=== PATIENT | male | born 1945 | race Caucasian/White ===

== ENCOUNTER 2020-06-13 07:26 | Outpatient (CLI) | payer OTHER ==
[2020-06-13 10:17] LABS: PTT 28.1 sec (22.9-36.1); Prothrombin Time 13.1 sec (12.0-14.7)
[2020-06-13 10:45] LABS: Mean Platelet Volume 6.7 fL (7.4-10.4); Platelet Count 166 thou/uL (130-400); White Blood Cell (WBC) Count 4.8 thou/uL (4.8-10.8)
[2020-06-13 11:03] LABS: Red Blood Cell (RBC) Count 3.85 mill/uL (4.70-6.10)
[2020-06-13 11:04] LABS: Mean Corpuscular HGB CONC 34.6 g/dL (32.0-36.0); Mean Corpuscular Hemoglobin 33.8 pg (27.0-31.0); Mean Corpuscular Volume 97.7 fL (78.0-98.0); RBC Distribution Width 13.1 % (11.5-14.5)
[2020-06-13 12:57] LABS: Anion Gap 18 mmol/L (10-20); BUN (Urea Nitrogen) 20 mg/dL (8.4-25.7); Calc. Creatinine Clearance 0 mL/min (70-130); Calcium 9.8 mg/dL (7.8-10.44); Carbon Dioxide 24 mmol/L (23-31); Chloride 96 mmol/L (98-107); Estimated GFR-MDRD 57; Glucose 103 mg/dL (83-110); Potassium 3.9 mmol/L (3.5-5.1); Sodium 134 mmol/L (136-145)
[2020-06-14 14:02] LABS: SARS-CoV-2 MS2 Positive; SARS-CoV-2 N Gene Negative; SARS-CoV-2 S Gene Negative; SARS-CoV-2 by NAA Not Detected (NotDetected); SARS-CoV-2 orf1ab Negative
== END 2020-06-13 07:27 | disposition home or self-care (01) ==
LOC: LABBT 07:26
PROVIDERS: ATTEND Neurological Surgery
DX: Z01.812 Encounter for preprocedural laboratory examination (principal); Z20.828 Contact with and (suspected) exposure to other viral communicable diseases; M48.02 Spinal stenosis, cervical region; M47.12 Other spondylosis with myelopathy, cervical region
CPT/HCPCS: 80048; 85027; 85610; 85730; 87635; U0003

== ENCOUNTER 2020-08-27 10:00 | Outpatient (CLI) | payer OTHER ==
--- NOTE | 2020-08-27 10:22 | RAD ---
EXAM: Cervical spine 2 views: HISTORY: Cervical stenosis, follow-up postsurgery COMPARISON: 06/11/2020 FINDINGS: Anterior cervical fusion changes at C4, C5, and C6. No evidence for acute fracture or dislocation or significant acute process. No evidence for significant malalignment. No prevertebral soft tissue swelling No evidence for a focal bone lesion. IMPRESSION: Unremarkable postoperative change.
--- NOTE | 2020-08-27 12:19 | RAD ---
LUMBAR SPINE SERIES 3 VIEWS WITH FLEXION AND EXTENSION: Date: 08/27/2020 HISTORY: Back pain, spinal stenosis. FINDINGS: Severe arthritic changes of the spine are noted. Pronounced disc narrowing at all vertebral body leve ls. There is no spondylolisthesis. There are prominent degenerative facet changes. There is limited m otion on either these flexion or extension views without abnormal motion demonstrated. IMPRESSION: 1. Severe osteoarthritic changes of the spine. 2. Atherosclerosis. POS: [facility]
== END 2020-08-27 10:01 | disposition home or self-care (01) ==
LOC: TBSIIMAG 10:00
PROVIDERS: ATTEND Neurological Surgery
DX: M48.061 Spinal stenosis, lumbar region without neurogenic claudication (principal); M48.02 Spinal stenosis, cervical region; M47.816 Spondylosis without myelopathy or radiculopathy, lumbar region; I70.0 Atherosclerosis of aorta; Z98.1 Arthrodesis status
CPT/HCPCS: 72040; 72100

== ENCOUNTER 2020-09-29 06:23 | Outpatient (CLI) | payer OTHER ==
[2020-09-29 12:22] LABS: Anion Gap 15 mmol/L (10-20); BUN (Urea Nitrogen) 32 mg/dL (8.4-25.7); Calc. Creatinine Clearance 0 mL/min (70-130); Carbon Dioxide 26 mmol/L (23-31); Chloride 100 mmol/L (98-107); Glucose 83 mg/dL (83-110); Potassium 4.2 mmol/L (3.5-5.1); Sodium 137 mmol/L (136-145)
[2020-09-29 12:53] LABS: PTT 24.8 sec (22.0-33.0); Prothrombin Time 10.5 sec (9.5-12.1)
[2020-09-29 13:14] LABS: Hemoglobin 11.6 g/dL (14.0-18.0); Mean Corpuscular HGB CONC 33.7 G/DL (32.0-36.0); Mean Platelet Volume 10.5 fl (7.4-10.4); Platelet Count 170 10x3/uL (130-400); Red Blood Cell (RBC) Count 3.51 10x6/uL (4.40-5.80); White Blood Cell (WBC) Count 4.8 10x3/uL (4.5-11.0)
[2020-09-29 18:03] LABS: SARS-CoV-2 MS2 Positive; SARS-CoV-2 N Gene Negative; SARS-CoV-2 S Gene Negative; SARS-CoV-2 by NAA Not Detected (NotDetected); SARS-CoV-2 orf1ab Negative
--- NOTE | 2020-10-04 12:52 | PRG ---
DATE OF SERVICE: 10/04/2020 Mr. Gibbs is two days into his hospitalization for L1-S1 laminectomy. He has extensive cardiac history, and we have consulted our cardiology colleagues. They are involved and aware of this case, and assisting we appreciate this. At this point, his drain output has been 400 mL over the last two days. This was a LAUREEN drain in the epidural space. There appears to be over 50 mL in at this morning, and we will leave this in place. On exam, he has baseline right-sided multimyotomal weakness, approximately , 3+/5 to 4-/5 strength throughout the right lower extremity and 4-/5 strength throughout the left lower extremity. He appears somewhat depressed, and I let him know that the biggest plan will be getting him to inpatient rehab once his cardiac status is stabilized. Job ID: [id number]
== END 2020-09-29 06:24 | disposition home or self-care (01) ==
LOC: LABBT 06:23
PROVIDERS: ATTEND Neurological Surgery
DX: Z01.812 Encounter for preprocedural laboratory examination (principal); Z20.828 Contact with and (suspected) exposure to other viral communicable diseases; M48.061 Spinal stenosis, lumbar region without neurogenic claudication
CPT/HCPCS: 80048; 85027; 85610; 85730; 87635; U0003

== ENCOUNTER 2020-09-29 10:15 | Inpatient (IN) | payer OTHER ==
--- NOTE | 2020-10-01 18:51 | HP ---
REASON FOR H AND P: Surgery on 10/02/2020. Case #[id number]. CHIEF COMPLAINT: Lower back and leg pain. HISTORY OF PRESENT ILLNESS: Mr. Gibbs is a 75-year-old gentleman with many years of lower back and leg pain. Now, he could only stand for about 5 minutes before he has to sit down and alleviates some of his pain. MRI indicated severe lumbar stenosis from L1-S1. He denies any bladder or bowel dysfunction. REVIEW OF SYSTEMS: CONSTITUTIONAL: Denies fever or chills. ENT: Denies change in vision or hearing. CARDIAC: Denies chest pain, shortness of breath, or diaphoresis. PULMONARY: Denies shortness of breath, cough, or hemoptysis. GI: Denies abdominal pain, nausea, vomiting, diarrhea, change in stool formation or consistency. : Denies trouble with urination, frequency of urination, or bloody urine. SKIN: Denies skin rash, bruising, bleeding, or skin masses. MUSCULOSKELETAL: As per history of present illness. NEUROLOGICAL: As per history of present illness. PSYCHOLOGICAL: Denies anxiety, depression, or behavior changes. PAST MEDICAL HISTORY: 1. Arthritis. 2. Cancer of the prostate. 3. High cholesterol. 4. Chronic pain. 5. High blood pressure. 6. Kidney or bladder problems. PAST SURGICAL HISTORY: 1. Bypass in 1988. 2. ACDF C4-C5, C5-C6 in 2019. HOSPITALIZATIONS: As above surgeries. FAMILY HISTORY: Father , diagnosed with stroke. Mother , diagnosed with none. SOCIAL HISTORY: Tobacco use. Denies illicit drug or alcohol use. MEDICATIONS: 1. MiraLAX. 2. Calcium with vitamin D3. 3. Imdur 30 mg. 4. Multivitamin. 5. Glucosamine and chondroitin. 6. Metoprolol 50 mg. 7. Hydrochlorothiazide 12.5 mg. 8. Pravastatin 20 mg. ALLERGIES: NO KNOWN DRUG ALLERGIES. PHYSICAL EXAMINATION: VITAL SIGNS: Height 5 feet 10 inches, weight 183 pounds, BMI 26.25. HEENT: Pupils are equal. Extraocular movements are intact. NECK: Soft, supple. No masses are noted. Range of motion is intact and nonpainful. NEUROLOGICAL: Awake, alert, and oriented x3. Memory, attention, fund of knowledge normal. Cranial nerves are grossly intact. Gait and station are normal. He has free active range of motion on all extremities. No focal motor weakness. No reflex asymmetry. IMAGING DATA: L-spine MRI; L2-L3 central canal stenosis and foraminal narrowing. X-ray of the L-spine, flexion-extension stable. ASSESSMENT: Lumbar stenosis with neurogenic claudication. PLAN: 1. L1-S1 laminectomy. 2. Stop smoking 4 weeks before surgery. 3. Anesthesia clearance. 4. Preop labs; CBC, PT, PTT, INR, COVID-19. INFORMED CONSENT: We discussed the indications, risks, benefits, alternatives, and expected results from surgery. The risks discussed included, but were not limited to, bleeding, infection, CSF leak, nerve damage, weakness, incontinence, cauda equina injury, arachnoiditis, paralysis, ventilator dependency, wheelchair dependency, loss of vision, cardiopulmonary complications of anesthesia or . Long-term complications discussed included, but were not limited to, spinal instability and future surgery. He understands the risks and is willing to proceed. Job ID: [id number] [facility]
[2020-10-02] MEDS ORDERED: Rocuronium Bromide 10 MG/ML (10ML VIAL) ONE (11:34)
[2020-10-02] MEDS ORDERED: PROPOFOL 200 MG/20 ML VIAL ONE (11:34)
[2020-10-02] MEDS ORDERED: Ondansetron PF 4 MG/2 ML Vial ONE (11:34)
[2020-10-02] MEDS ORDERED: Dexamethasone 20 MG/5 ML VIAL ONE (11:34)
[2020-10-02] MEDS ORDERED: PHENYLEPHRINE-NS 100 MCG/ML 10 ML SYRINGE ONE ×2 (11:34→17:03)
[2020-10-02] MEDS ORDERED: ePHEDrine 50 MG/ML VIAL ONE ×2 (11:34→14:45)
[2020-10-02] MEDS ORDERED: Glycopyrrolate 0.2 MG/ML 5 ML SYRINGE ONE (11:34)
[2020-10-02] MEDS ORDERED: Bupivacaine PF 0.5% 30 ML VIAL ONE (12:03)
[2020-10-02] MEDS ORDERED: Thrombin 5000 UNITS/5 ML VIAL ONE (12:03)
[2020-10-02] MEDS ORDERED: EPINEPHrine 1 MG/ML AMP ONE (12:03)
[2020-10-02] MEDS ORDERED: Fentanyl 100 MCG/2 ML VIAL ONE ×3 (12:06→18:48)
[2020-10-02] MEDS ORDERED: Midazolam HCl 2 mg/2 ml Vial ONE (12:06)
[2020-10-02] MEDS ORDERED: Ketamine 50 MG/ML (10ML VIAL) ONE (12:06)
[2020-10-02] MEDS ORDERED: Tamsulosin HCl 0.4 MG CAP PO PRN (12:45)
[2020-10-02] MEDS ORDERED: Bisacodyl 10 MG SUPP PR PRN (12:45)
[2020-10-02] MEDS ORDERED: tiZANidine HCl 4 MG TAB PO PRN (12:45)
[2020-10-02] MEDS ORDERED: Morphine 2 MG/ML VIAL SLOW IVP PRN (12:45)
[2020-10-02] MEDS ORDERED: traMADol HCl 50 MG TAB PO PRN (12:45)
[2020-10-02] MEDS ORDERED: Scopolamine 1.5 mg/72 hour Patch TD PRN (12:45)
[2020-10-02] MEDS ORDERED: Promethazine 25 MG TAB PO PRN (12:45)
[2020-10-02] MEDS ORDERED: Promethazine HCl 25 MG/ML VIAL IM PRN (12:45)
[2020-10-02] MEDS ORDERED: Milk Of Magnesia 30 ML UDCUP PO PRN (12:45)
[2020-10-02] MEDS ORDERED: Phenylephrine 10 MG/ML VIAL ONE ×2 (14:25→14:45)
[2020-10-02] MEDS ORDERED: Albumin 5% 250 ML ONE (17:03)
[2020-10-02] MEDS ORDERED: NS 0.9% w/ 20 MEQ KCL 0 ML ONE (17:03)
[2020-10-02] MEDS ORDERED: Albumin 5% 0 ML ONE (17:03)
--- NOTE | 2020-10-02 17:09 | OP ---
DATE OF PROCEDURE: 10/02/2020 RETAIL PLANNING MANAGER: Regis Knutson PA-C PREOPERATIVE INDICATION: Treat pain and prevent neurological deterioration. PREOPERATIVE DIAGNOSIS: Multilevel lumbar stenosis with neurogenic claudication. POSTOPERATIVE DIAGNOSIS: Multilevel lumbar stenosis with neurogenic claudication. PROCEDURES PERFORMED: Decompressive laminectomy, medial facetectomy, and foraminotomy, L1-L2, L2-L3, L3-L4, L4-L5, L5-S1. PREOPERATIVE MEDICATIONS: Ancef 2 g IV. DRAIN NUMBER: Zero. DRAIN TYPE: None. DESCRIPTION OF PROCEDURE: The patient was brought to the operating room. General endotracheal anesthesia was induced. The patient was positioned prone on the operating table with the chest and hips supported by gel-filled chest rolls. A lateral fluoro radiograph was used to plan our incision. The lumbar skin was sterilely prepped and draped. We opened with a 10 blade knife and we controlled bleeding with bipolar and monopolar cautery. We used monopolar cautery to dissect through subcutaneous tissues to the thoracodorsal fascia. We incised the fascia in the midline and reflected paraspinal muscles off the spinous process and the lamina from L1 through S1. Self-retaining retractors were placed and a lateral fluoro radiograph confirmed the levels upon which we were operating. We then used an Adson rongeur to remove the spinous processes from the inferior portion of L1 to the superior portion of the first sacral spinous process. Kerrison rongeurs were used to fashion a laminectomy down the midline. We used a high-speed drill to thin the lamina over the pars interarticularis, preserving enough bone at each segment to keep it stable, but making Kerrison work easier. We widened our laminectomy defect with Kerrison's and performed medial facetectomies at each of the interspaces to decompress the traversing nerve roots. We performed foraminotomies over the exiting nerve roots from L1 through S1 on both sides. We irrigated with bacitracin irrigation. We waxed the bone edges. We controlled epidural bleeding with gentle bipolar cautery. We infused local anesthetic in the paraspinal muscles. We tunneled the drain inferiorly through a separate stab incision. We irrigated the wound copiously with bacitracin irrigation. We infused local anesthetic once again in the paraspinal muscles. We closed in anatomical layers after applying vancomycin powder. We applied a sterile dressing. This was a clean case, no contamination. Job ID: [id number]
[2020-10-02] MEDS ORDERED: Morphine Sulfate 2 MG/ML SYRINGE SLOW IVP PRN (17:11)
[2020-10-02] MEDS ORDERED: Ondansetron HCl/PF 4 MG/2 ML Vial IVP PRN (17:11)
[2020-10-02] MEDS ORDERED: PACU-Morphine 4MG/ML VIAL SLOW IVP PRN (17:11)
[2020-10-02] MEDS ORDERED: Tamsulosin HCl 0.4 MG CAP ONE (17:58)
[2020-10-02] MEDS: Metoprolol Tartrate 50 MG TAB PO SCH (21:41)
[2020-10-02] MEDS: Simvastatin 10 MG TAB PO SCH (21:41)
[2020-10-02 22:30] VITALS: BMI 26.2
[2020-10-02] MEDS: Sodium Chloride 0.9% 1,000 ML IV SCH (23:19)
[2020-10-02] MEDS: CEFAZOLIN 2 GM in Premix Bag 1 BAG IVPB SCH (23:19)
--- NOTE | 2020-10-02 23:41 | CON ---
DATE OF CONSULTATION: 10/02/2020 REASON FOR CONSULT: Urinary retention. CHIEF COMPLAINT: Retention. HISTORY OF PRESENT ILLNESS: This is a 75-year-old male who underwent lumbar laminectomy earlier today. Surgery started around 1 o'clock at which point, they were unable to place a catheter and elected to defer placement throughout the entirety of the case. He was then sent to Recovery and the nurse there was told to place a catheter, and if unable to contact Urology later in the evening. She wisely contacted me after attempting to place a catheter and meeting resistance in the distal urethra. She bladder scanned him and he was found to be retaining with PVR, bladder scan of 575 mL. He is currently waking up from his anesthetic and is only able to partially answer my questions. He is a patient of Dr. Kiran in [place], and underwent a TURP in June. Ever since, he has had weak stream with spraying urgency and frequency. He has no prior history of prostate or urologic surgery. He does not report a sensation of bladder fullness or bladder discomfort currently. REVIEW OF SYSTEMS: 10-point review of systems is not possible given the patient's mental status as he awakes from anesthesia. MEDICAL HISTORY: Mostly gleaned from his history and physical, although he is able to provide some information. He has a history of arthritis, hyperlipidemia, chronic back pain, hypertension, and the chart says prostate cancer, although the patient seems to disagree. SURGICAL HISTORY: TURP in June, CABG in 1988, cervical spine surgery earlier this year. FAMILY HISTORY: No pertinent urology history. MEDICATIONS: Reviewed. No pertinent urology medications. SOCIAL HISTORY: Positive tobacco use. No substance abuse. ALLERGIES: NO KNOWN DRUG ALLERGIES. PHYSICAL EXAMINATION: GENERAL: No acute distress, resting comfortably in bed. HEENT: Head, normocephalic and atraumatic. Extraocular movements intact. Sclerae anicteric. NECK: Supple. Trachea midline. LUNGS: Unlabored breathing. Symmetric chest expansion. HEART: Regular rate and rhythm. ABDOMEN: Soft, nontender, nondistended. No flank tenderness. No suprapubic tenderness : Bladder is palpable and distended. EXTREMITIES: No peripheral edema or cyanosis. SKIN: Warm and dry. NEURO: Drowsy, but arousable, oriented to person and place. LABORATORY DATA: Creatinine 1.46. PROCEDURE: On examining the patient's penis, I am able to appreciate a tight stricture at the fossa navicularis. I used a ureteral access sheath 10/06 to dilate this first using the inner aspect 12-Vincentian and then adding the outside, 14-Vincentian, sheath. Under sterile conditions, I used it to dilate the urethra and then was able to pass a 12-Vincentian Oneil catheter meeting no resistance in the more proximal urethra or prostate. Yellow urine resulted. 10 mL were instilled in the balloon. This was connected to bag drainage and StatLock device deployed. ASSESSMENT AND PLAN: Fossa navicularis stricture, urinary retention. The Oneil catheter will need to remain for the time being. He will follow up with his urologist in the next few weeks for a void trial in close observation. He is very likely to have a recurrence of his fossa navicularis stricture as these are notoriously difficult to treat without reconstructive surgery. He may be able to retain patency by periodic dilation. Job ID: [id number]
[2020-10-03] MEDS: Sodium Chloride 0.9% 1,000 ML IV SCH ×3 (03:05→20:31)
[2020-10-03] MEDS: CEFAZOLIN 2 GM in Premix Bag 1 BAG IVPB SCH (03:56)
--- NOTE | 2020-10-03 07:17 | PRG ---
DATE OF SERVICE: I saw Ivan Gibbs in rounds this morning. He is resting comfortably. He said he was able to stand up straighter when he transferred to the bathroom last night. Due to some urinary retention, a Oneil was placed after that. His back is sore, but his legs feel fine. Among electronically recorded vital signs, the highest temperature I see is 98.7 degrees Fahrenheit. Blood pressures have been in the 100s to 120s. I do not find any new deficits in the lower extremities. The plan today is to have Mr. Gibbs work with Physical Therapy and ambulate. Once he is safe walking, the Oneil can be taken out. As the drain output tapers off, we can consider removing it once the average is less than 5 mL an hour. Job ID: [id number] [facility]
[2020-10-03] MEDS: Hydrochlorothiazide 25 MG TAB PO SCH (08:39)
[2020-10-03] MEDS: Metoprolol Tartrate 50 MG TAB PO SCH ×2 (08:42→20:36)
[2020-10-03] MEDS: Polyethylene Glycol 3350 17 GM Packet PO SCH (08:42)
[2020-10-03] MEDS: Acetaminophen/Codeine 30-300mg Tablet PO PRN (16:18)
[2020-10-03] MEDS: Acetaminophen 325 MG TAB PO PRN (20:30)
[2020-10-03] MEDS: Simvastatin 10 MG TAB PO SCH (20:31)
[2020-10-03] MEDS ORDERED: Ibuprofen 600 MG TAB PO PRN (21:40)
[2020-10-04 02:01] LABS: Troponin I 0.013 ng/mL (< 0.028)
[2020-10-04] MEDS ORDERED: Nitroglycerin 0.4 MG TAB (25 Tab Bottle) SL PRN (03:38)
--- NOTE | 2020-10-04 04:30 | CON ---
DATE OF CONSULTATION: CHIEF COMPLAINT: Chest pain. PCP: [facility]. HISTORY OF PRESENT ILLNESS: Mr. Gibbs is a 75-year-old man, who was admitted by Neurosurgery for lumbar laminectomy after an MRI indicated severe lumbar stenosis at L1-S1. He had been complaining that he was only able to stand for 5 minutes at a time before he had to sit down due to the pain. He reports that he started having some chest pain this afternoon. Reports that he drank some water, pain went away, and then it came back. Reports that it is intermittent, substernal. Denies any radiation. Denies any dyspnea or diaphoresis. The patient had a stat EKG which showed normal sinus rhythm with a first-degree AV block, which was on the previous EKG in his chart. First troponin was drawn and was negative. We will do serial troponins. We will check lab values in the morning and await Cardiology input on this case. REVIEW OF SYSTEMS: CONSTITUTIONAL: He denies any fever or chills. CARDIAC: He reports substernal chest pain. Denies any shortness of breath or diaphoresis. PULMONARY: Denies any shortness of breath or cough. GI: Denies any abdominal pain, nausea, or vomiting. Denies any diarrhea or constipation. : He reports prior to surgery, he had trouble with urination. He did have some urinary retention which required consultation with Urology where they placed a urinary catheter. He does have some stricture and post TURP. All systems are reviewed and are negative unless mentioned above or in the HPI. PAST MEDICAL HISTORY: He has a history of arthritis, cancer of the prostate, hyperlipidemia, chronic pain related to back pain and lumbar spine and cervical. He has had surgery prior to this visit on his cervical spine. Hypertension. Urinary retention, urinary stream changes. PAST SURGICAL HISTORY: He has had a CABG in 1988, ACDF at C4-5 in C5 and C6. FAMILY HISTORY: Father , history of CVA. Mother is also with no significant family history. SOCIAL HISTORY: He is one pack a day smoker and has done so since he was 11. He denies any illicit drug and denies any alcohol use. ALLERGIES: NONE. HOME MEDICATIONS: 1. Takes vitamin D3 and citrate calcium citrate one tablet p.o. daily. 2. Glucosamine-chondroitin complex two tabs p.o. daily. 3. Hydrochlorothiazide 12.5 mg p.o. q.a.m. 4. Imdur ER 30 mg p.o. q.a.m. 5. Metoprolol 50 mg p.o. b.i.d. 6. MiraLAX 17 g p.o. daily. 7. Multivitamin one tablet p.o. daily. 8. Pravachol 20 mg p.o. h.s. PLAN/ASSESSMENT: 1. Chest pain with a history of coronary artery disease and post recent surgical intervention with a laminectomy in the lumbar spine. We will do serial troponins. Neurosurgery has already consulted Cardiology. We will place the patient on a telemetry bed for monitoring. We will recheck lab values, lipid profile and a TSH. Had some nitroglycerin sublingual as needed for chest pain p.r.n. 2. History of hypertension. Home medication has been restarted. 3. History of hyperlipidemia. We will recheck fasting lipids. His statin medication has been restarted. 4. Recent laminectomy. Evidently the patient is scheduled to go to rehab. I am sure this will happen as soon as he is cleared by Cardiology. Case was discussed with Dr. Springer. We appreciate the consult. We will follow the patient with you. Job ID: [id number]
[2020-10-04 06:20] LABS: Troponin I 0.019 ng/mL (< 0.028)
[2020-10-04 08:13] LABS: Troponin I 0.031 ng/mL (< 0.028)
[2020-10-04] MEDS: Hydrochlorothiazide 25 MG TAB PO SCH (10:16)
[2020-10-04] MEDS: Metoprolol Tartrate 50 MG TAB PO SCH ×2 (10:17→21:50)
[2020-10-04] MEDS: Polyethylene Glycol 3350 17 GM Packet PO SCH ×2 (10:17→10:20)
--- NOTE | 2020-10-04 10:20 | CON ---
DATE OF CONSULTATION: 10/04/2020 INDICATION FOR CONSULTATION: A 75-year-old patient with a history of known coronary artery disease, status post bypass surgery, who had some chest discomfort last night, was transferred down to a telemetry floor and is now being evaluated due to the chest pain and history of coronary artery disease. HISTORY OF PRESENT ILLNESS: This is a very unfortunate 75-year-old gentleman who had bypass surgery for two vessels in 1988 in [place], has been doing very well, has remained stable. He says he does have some chest pain. He says if he gets dehydrated, he drinks a glass of water, sits up and the pain resolves. He does not take anything for the chest pain. Otherwise, on the 02 of October, he underwent neurologic surgery for spine and he was on the recovery floor, where he had been complaining of some chest discomfort last night. EKG was obtained. He did not have any acute changes. He did have some T-wave inversion and nonspecific ST-segment changes, which were present before surgery. He also had a first-degree AV heart block. He was then transferred down to the Stroke unit for telemetry monitoring. He has been stable since that time. His enzymes did increase only minimal, which would not be unusual after surgery. Three sets of troponins now show troponin I originally around midnight at 1:00 a.m. was 0.013, at 4 o'clock in the morning was 0.019, both of these are negative. Then, the third set was 0.031, which is still actually indeterminate. We will repeat a little more enzymes to see whether or not it is increasing significantly or not, but does not appear that he is having any acute episode at this time and most likely the slight increase in the troponin is due to demand ischemia associated with perhaps the stress of surgery. Otherwise, he has remained relatively stable. He has no chest pain at this time. Vital signs are stable. He is normally followed by the [facility] in [place] and he said that he was told by the business objects there the last time he was admitted there that he should not returned since he continued to smoke and then he should follow up with his physician at the [facility] in [place]. I do not think he has been back to visit with him, I do not know he is uncertain about when his last stress test or echocardiogram was performed. We have no records as to what his ejection fraction is. At some point in time, it probably would be advisable for the patient to undergo stress testing. However, at this time, he is not a candidate for stress testing since he is not a candidate for cardiac catheterization unless he becomes emergent. At this time, he does appear to be stable. He is asymptomatic. PAST MEDICAL HISTORY: Significant for coronary artery disease and bypass surgery as noted above. He has had cataract surgery. He has hypertension, dyslipidemia. He has had a transurethral resection of the prostate. Due to prostate cancer, he has arthritis. He has chronic pain, back problems. He has had some C4 and C5 as well as C5 and C6 ACDF. FAMILY HISTORY: His father in his 90s from a stroke. His mother also at elderly age. SOCIAL HISTORY: He continues to use tobacco. He has no significant alcohol use. 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 REVIEW OF SYSTEMS: HEENT: He did not have any HEENT complaints. PULMONARY: No pulmonary complaints. GI/: No GI or complaints. MUSCULOSKELETAL: He says he is unable to walk due to his back problems. He does complain of some right foot swelling. Otherwise, review of systems is unremarkable, so it was noted in the history of present illness. PHYSICAL EXAMINATION: GENERAL: Reveals an elderly gentleman. He is in no acute distress at this time. VITAL SIGNS: Stable. His blood pressure is 126/71. He is afebrile. Respiratory rate is 16, heart rate is 76 and shows a sinus rhythm, and O2 saturation is 99%. HEENT: Shows the head to be normocephalic and atraumatic. Carotid pulses are slightly decreased. He does have a right carotid bruit. CHEST: Clear to auscultation. CARDIOVASCULAR: Reveals a regular rate and rhythm. I do not hear any significant murmurs, heaves, thrills, bruits, or rubs. He has a well-healed midline surgical incision after median sternotomy. ABDOMEN: Soft and nontender. Positive bowel sounds are present. There is no organomegaly or masses noted. Femoral pulses are present. EXTREMITIES: Show no clubbing, cyanosis, or edema. Pedal pulses also present. NEUROLOGIC: The patient did not get out of the bed for further evaluation, but otherwise seems to be doing quite well. LABORATORY DATA: Shows the troponin as noted above. He has not had any other recent laboratory data except for his preop evaluation which showed a sodium of 137, potassium 4.2, chloride was 100, BUN was 32 with a creatinine 1.46, which indicates some degree of chronic renal insufficiency likely. Blood sugar was 83. His WBC was 4.8, hemoglobin 11.6, hematocrit 34.4, and platelet count was 170,000. IMAGING PROCEDURE: EKG shows a sinus rhythm with first-degree AV heart block with some nonspecific T-wave changes and T-wave inversions in the anterior lateral leads. Also some flattening of T-waves in the inferior leads. IMPRESSION: 1. A 75-year-old gentleman with status post neurologic surgery for spine problems in the lower back. He seems to be recovering well from the surgery. He says he has not yet gotten out of bed to try to ambulate and this will be dealt with by the neurological service. With his history of coronary artery disease, it would also be advisable perhaps to undergo an echocardiogram since one has not been performed apparently for quite some time. 2. Coronary artery disease. 3. Chest pain with a history of coronary artery disease. Does not appear to be anything acute at this time. We will repeat one more set of enzymes since the last set was slightly elevated. At some point in time, he should undergo stress testing, but this is inappropriate at this time since he has just passed his bypass surgery, he will not be a candidate for anticoagulation, should he have any abnormal studies unless he becomes an emergency. At this time, he appears to be stable. 4. History of chronic renal insufficiency. He may need eventually to be followed by the [facility] for followup of his kidneys. He has been on LÁZARO inhibitors in the past. It is being held at this time. Certainly can continue to hold those as long as his creatinine is slightly elevated. If unless we know that this is a chronic problem, then he can resume his LÁZARO inhibitors once the blood pressure is slightly higher. At this time, he seems to be doing quite well. We will continue his metoprolol as well as the atorvastatin and the isosorbide due to his coronary artery disease. 5. Right carotid bruit. He should undergo carotid Doppler evaluation. This can be performed also as an outpatient at the [facility] unless the neurologist here opts to have the carotid Doppler performed prior to discharge. Job ID: [id number]
[2020-10-04 12:00] LABS: INR-International Normal Ratio 1.1; PTT 30.4 sec (22.9-36.1); Prothrombin Time 14.5 sec (12.0-14.7)
[2020-10-04 12:13] LABS: Anion Gap 11 mmol/L (10-20); BUN (Urea Nitrogen) 18 mg/dL (8.4-25.7); Calc. Creatinine Clearance 74 mL/min (70-130); Calcium 8.6 mg/dL (7.8-10.44); Carbon Dioxide 24 mmol/L (23-31); Chloride 101 mmol/L (98-107); Glucose 108 mg/dL (83-110); Sodium 132 mmol/L (136-145)
[2020-10-04 12:17] LABS: Troponin I 0.059 ng/mL (< 0.028)
[2020-10-04 12:23] LABS: #Eosinphils 0.1 thou/uL (0.0-0.7); #Lymphocytes 0.9 thou/uL (1.20-3.40); #Monocytes 0.5 thou/uL (0.11-0.59); #Neutrophils 4.8 thou/uL (1.40-6.50); %Basophils 0.3 % (0.0-1.0); %Eosinophils 1.7 % (0.0-10.0); %Lymphocytes 13.9 % (21.0-51.0); %Monocytes 7.8 % (0.0-10.0); %Neutrophils 76.3 % (42.0-75.0); Hemoglobin 7.5 g/dL (14.0-18.0); Mean Corpuscular HGB CONC 34.7 g/dL (32.0-36.0); Mean Corpuscular Hemoglobin 33.6 pg (27.0-31.0); Mean Corpuscular Volume 96.7 fL (78.0-98.0); Mean Platelet Volume 6.2 fL (7.4-10.4); Platelet Count 114 thou/uL (130-400); RBC Distribution Width 13.3 % (11.5-14.5); Red Blood Cell (RBC) Count 2.22 mill/uL (4.70-6.10); White Blood Cell (WBC) Count 6.3 thou/uL (4.8-10.8)
[2020-10-04] MEDS: Sodium Chloride 0.9% 1,000 ML IV SCH (12:37)
[2020-10-04 12:53] LABS: MDiff Complete? YES; Platelet Morphology Comment Appears Decreased; Polychromasia SLIGHT = 2-3 cells (100X) (0-2/hpf)
[2020-10-04] MEDS: Acetaminophen 325 MG TAB PO PRN ×2 (13:21→21:50)
--- NOTE | 2020-10-04 14:37 | PDOC.HOSPP ---
- Subjective Encounter Date: 10/04/20 Subjective: No recurrent chest pain today. - Objective Vital Signs & Weight: Vital Signs (12 hours) Temp Pulse Resp BP Pulse Ox 10/04/20 11:27 99.8 F H 85 16 114/67 95 10/04/20 07:48 97.5 F L 76 16 126/71 99 10/04/20 07:40 98 F 80 16 123/69 96 Weight Weight 183 lb I&O: 10/03/20 10/04/20 10/05/20 06:59 06:59 06:59 Intake Total 120 Output Total 800 2410 40 Balance -800 -2410 80 Result Diagrams: 10/05/20 04:29 10/05/20 04:29 Hospitalist ROS - Medication Medications: Active Medications Generic Name Dose Route Start Last Admin Trade Name Freq PRN Reason Stop Dose Admin Acetaminophen 650 mg 10/02/20 12:45 10/04/20 13:21 Acetaminophen 325 Mg Tab PO 650 mg Q4H PRN Administration Headache/Fever or Pain Acetaminophen/Codeine Phosphate 1 tab 10/02/20 12:45 10/03/20 16:18 Acetaminophen/Codeine 30-300mg Tablet PO 1 tab Q3H PRN Administration Mild Pain (1-3) Hydrochlorothiazide 12.5 mg 10/03/20 09:00 10/04/20 10:16 Hydrochlorothiazide 25 Mg Tab PO 12.5 mg QAM KALPANA Administration Sodium Chloride 1,000 mls @ 75 mls/hr 10/02/20 12:45 10/04/20 12:37 Normal Saline 0.9% IV Not Given .[id number] KALPANA Ibuprofen 600 mg 10/03/20 21:40 10/03/20 21:54 Ibuprofen 600 Mg Tab PO 600 mg Q4H PRN Administration Pain Isosorbide Mononitrate 30 mg 10/03/20 09:00 10/04/20 10:16 Isosorbide Mononitrate Er 30 Mg Tab PO 30 mg QAM KALPANA Administration Metoprolol Tartrate 50 mg 10/02/20 21:00 10/04/20 10:17 Metoprolol Tartrate 50 Mg Tab PO 50 mg BID KALPANA Administration Morphine Sulfate 2 mg 10/02/20 12:45 10/03/20 08:41 Morphine 2 Mg/Ml Vial SLOW IVP 2 mg Q1H PRN Administration Moderate Breakthrough Pain Polyethylene Glycol 17 gm 10/03/20 09:00 10/04/20 10:20 Polyethylene Glycol 3350 17 Gm Packet PO Not Given DAILY KALPANA Simvastatin 10 mg 10/02/20 21:00 10/03/20 20:31 Simvastatin 10 Mg Tab PO 10 mg HS KALPANA Administration Tramadol HCl 50 mg 10/02/20 12:45 10/02/20 21:41 Tramadol Hcl 50 Mg Tab PO 50 mg Q6H PRN Administration Mild Pain (1-3) - Exam ENT: normocephalic atraumatic Neck: supple, no JVD Heart: RRR Respiratory: normal chest expansion, no tachypnea Extremities: no cyanosis, no clubbing Hosp A/P (1) Chest pain Code(s): R07.9 - CHEST PAIN, UNSPECIFIED Status: Acute (2) CAD (coronary artery disease) Code(s): I25.10 - ATHSCL HEART DISEASE OF [place] CORONARY ARTERY W/O ANG PCTRS Status: Chronic (3) Urine retention Code(s): R33.9 - RETENTION OF URINE, UNSPECIFIED Status: Acute - Plan Postoperative chest pain with history of coronary artery disease. Serial troponins slightly trending up. The patient was evaluated by cardiology and no acute intervention was recommended. Continue aspirin, atorvastatin, Imdur, Lopressor, and nitroglycerin. Oneil catheter was placed by urology for urinary retention. Continue tamsulosin.
[2020-10-04] MEDS: Atorvastatin Calcium 40 MG TAB PO SCH (21:50)
[2020-10-05] MEDS: Sodium Chloride 0.9% 1,000 ML IV SCH ×2 (04:02→17:20)
[2020-10-05] MEDS: Acetaminophen 325 MG TAB PO PRN ×2 (04:18→21:53)
[2020-10-05 05:17] LABS: ALT (SGPT) 9 U/L (8-55); AST (SGOT) 23 U/L (5-34); Albumin 3.2 g/dL (3.4-4.8); Alkaline Phosphatase 52 U/L (40-110); Anion Gap 12 mmol/L (10-20); BUN (Urea Nitrogen) 14 mg/dL (8.4-25.7); Bilirubin, Total 0.7 mg/dL (0.2-1.2); Calc. Creatinine Clearance 78 mL/min (70-130); Calcium 8.9 mg/dL (7.8-10.44); Carbon Dioxide 26 mmol/L (23-31); Chloride 101 mmol/L (98-107); Cholesterol 107 mg/dl (< 200 Desired); Globulin 2.6 g/dL (2.4-3.5); Glucose 109 mg/dL (83-110); HDL Cholesterol 36 mg/dL (>60 Neg Risk); LDL Cholesterol, Calculated 52 mg/dL; Potassium 3.9 mmol/L (3.5-5.1); Protein, Total 5.8 g/dL (5.8-8.1); Sodium 135 mmol/L (136-145); Triglycerides 96 mg/dL (Less than 150)
[2020-10-05 05:27] LABS: #Eosinphils 0.2 thou/uL (0.0-0.7); #Lymphocytes 1.5 thou/uL (1.20-3.40); #Monocytes 0.6 thou/uL (0.11-0.59); #Neutrophils 4.3 thou/uL (1.40-6.50); %Basophils 0.1 % (0.0-1.0); %Eosinophils 3.1 % (0.0-10.0); %Monocytes 8.5 % (0.0-10.0); %Neutrophils 65.3 % (42.0-75.0); Hemoglobin 8.9 g/dL (14.0-18.0); Mean Corpuscular HGB CONC 37.1 g/dL (32.0-36.0); Mean Corpuscular Hemoglobin 35.1 pg (27.0-31.0); Mean Corpuscular Volume 94.7 fL (78.0-98.0); Mean Platelet Volume 6.4 fL (7.4-10.4); Platelet Count 115 thou/uL (130-400); RBC Distribution Width 13.5 % (11.5-14.5); Red Blood Cell (RBC) Count 2.54 mill/uL (4.70-6.10); White Blood Cell (WBC) Count 6.6 thou/uL (4.8-10.8)
[2020-10-05] MEDS: Tamsulosin HCl 0.4 MG CAP PO SCH (07:37)
[2020-10-05] MEDS: Hydrochlorothiazide 25 MG TAB PO SCH (08:57)
[2020-10-05] MEDS: Polyethylene Glycol 3350 17 GM Packet PO SCH (08:57)
[2020-10-05] MEDS: Metoprolol Tartrate 50 MG TAB PO SCH ×2 (08:57→21:53)
[2020-10-05] MEDS ORDERED: Aspirin 81 mg Enteric Coated Tablet PO SCH (09:00)
--- NOTE | 2020-10-05 11:09 | PRG ---
DATE OF SERVICE: 10/05/2020 Mr. Gibbs is now postoperative day 2, following his multilevel lumbar laminectomy. His hemoglobin was below 8, yesterday we gave him a unit of blood. It has now recovered nicely. While he had chest pain and was initiated on baby aspirin, I have stopped this given his high drain output of 500 mL over 2 days. If that is starting to taper off given that we have just transfused him, I would be concerned about persistent risk of postoperative anemia and it does not appear at this point as if we were clearly dealing with an NH. He has had a fever of 100.4, and we will send urinalysis and ultrasound of the legs this morning. Otherwise, the patient has no complaints this morning. We will continue to work toward inpatient rehab. Job ID: [id number]
--- NOTE | 2020-10-05 12:10 | ULT ---
BILATERAL LOWER EXTREMITY VENOUS ULTRASOUND: Date: 10/05/2020 HISTORY: Back surgery on 10/02/2020. Postoperative fever. Bilateral lower extremity edema. TECHNIQUE: Multiplanar Jenkins scale and color Doppler images were obtained in a bilateral lower extremity venous u ltrasound. Spectral analysis of the Doppler waveforms were performed. FINDINGS: Bilateral common femoral veins, profunda femoral veins, superficial femoral veins, and popliteal vein s are normal in appearance without visible thrombus. These vessels demonstrate normal compression, fl ow, and augmentation. The posterior tibial veins and greater saphenous veins are also patent. IMPRESSION: No evidence of deep venous thrombosis. POS: EAA
--- NOTE | 2020-10-05 13:48 | PDOC.HOSPP ---
- Subjective Encounter Date: 10/05/20 Subjective: Patient denies any chest pain or shortness of breath today. - Objective Vital Signs & Weight: Vital Signs (12 hours) Temp Pulse Resp BP Pulse Ox 10/05/20 11:43 98.2 F 65 20 130/82 97 10/05/20 08:00 98.4 F 78 18 158/90 H 95 10/05/20 04:18 100.6 F H 10/05/20 04:07 100.6 F H 76 16 144/67 H 94 L Weight Weight 183 lb I&O: 10/04/20 10/05/20 10/06/20 06:59 06:59 06:59 Intake Total 2115 240 Output Total 2410 1745 30 Balance -2410 370 210 Result Diagrams: 10/05/20 04:29 10/05/20 04:29 Hospitalist ROS - Medication Medications: Active Medications Generic Name Dose Route Start Last Admin Trade Name Freq PRN Reason Stop Dose Admin Acetaminophen 650 mg 10/02/20 12:45 10/05/20 04:18 Acetaminophen 325 Mg Tab PO 650 mg Q4H PRN Administration Headache/Fever or Pain Acetaminophen/Codeine Phosphate 1 tab 10/02/20 12:45 10/03/20 16:18 Acetaminophen/Codeine 30-300mg Tablet PO 1 tab Q3H PRN Administration Mild Pain (1-3) Atorvastatin Calcium 40 mg 10/04/20 21:00 10/04/20 21:50 Atorvastatin Calcium 40 Mg Tab PO 40 mg HS KALPANA Administration Hydrochlorothiazide 12.5 mg 10/03/20 09:00 10/05/20 08:57 Hydrochlorothiazide 25 Mg Tab PO 12.5 mg QAM KALPANA Administration Sodium Chloride 1,000 mls @ 75 mls/hr 10/02/20 12:45 10/05/20 04:02 Normal Saline 0.9% IV 1,000 mls .[id number] KALPANA Administration Isosorbide Mononitrate 30 mg 10/03/20 09:00 10/05/20 08:57 Isosorbide Mononitrate Er 30 Mg Tab PO 30 mg QAM KALPANA Administration Metoprolol Tartrate 50 mg 10/02/20 21:00 10/05/20 08:57 Metoprolol Tartrate 50 Mg Tab PO 50 mg BID KALPANA Administration Morphine Sulfate 2 mg 10/02/20 12:45 10/03/20 08:41 Morphine 2 Mg/Ml Vial SLOW IVP 2 mg Q1H PRN Administration Moderate Breakthrough Pain Polyethylene Glycol 17 gm 10/03/20 09:00 10/05/20 08:57 Polyethylene Glycol 3350 17 Gm Packet PO Not Given DAILY KALPANA Tamsulosin HCl 0.4 mg 10/05/20 06:00 10/05/20 07:37 Tamsulosin Hcl 0.4 Mg Cap PO 0.4 mg 0600 KALPANA Administration Tramadol HCl 50 mg 10/02/20 12:45 10/02/20 21:41 Tramadol Hcl 50 Mg Tab PO 50 mg Q6H PRN Administration Mild Pain (1-3) - Exam General Appearance: awake alert ENT: normocephalic atraumatic Neck: supple, no JVD Heart: RRR Respiratory: normal chest expansion, no tachypnea Gastrointestinal: soft Hosp A/P (1) Chest pain Code(s): R07.9 - CHEST PAIN, UNSPECIFIED Status: Acute (2) CAD (coronary artery disease) Code(s): I25.10 - ATHSCL HEART DISEASE OF [place] CORONARY ARTERY W/O ANG PCTRS Status: Chronic (3) Urine retention Code(s): R33.9 - RETENTION OF URINE, UNSPECIFIED Status: Acute (4) Fever Code(s): R50.9 - FEVER, UNSPECIFIED Status: Acute - Plan Postoperative chest pain with history of coronary artery disease. The patient was evaluated by cardiology and no acute intervention was recommended. Continue atorvastatin, Imdur, Lopressor, and nitroglycerin. Aspirin was placed on hold by surgical team due to increased output from the drain. Oneil catheter was placed by urology for urinary retention. Continue tamsulosin. Fever was present this morning. Check blood culture. Urinalysis pending. Ultrasound of the venous system of the lower extremities did not show any DVT.
[2020-10-05 13:57] LABS: Bacteria/HPF None Seen HPF (None Seen); Bilirubin Negative (Negative); Blood, Urine Trace (Negative); Clarity Clear (Clear); Glucose, Urine (Dipstick) Normal (Negative); Ketone, Urine Negative (Negative); Leukocyte Negative Leu/uL (Negative); Mucous/LPF Rare LPF (<2+); Nitrite Negative (Negative); Protein, Urine (Dipstick) Negative (Neg-Trace); RBC/HPF 0-3 HPF (0-3); Specific Gravity, Urine 1.012 (1.002-1.036); Squamous Epithelial 0-3 HPF (0-3); Urobilinogen Normal mg/dL (Less than 2); WBC/HPF 0-3 HPF (0-3)
[2020-10-05 14:02] LABS: Urine Culture Reflex No No
--- NOTE | 2020-10-05 15:10 | PDOC.CPN ---
- Subjective Date: 10/05/20 Time: 11:00 Interval history: Patient did not have any episodes of chest pain over night, he denies chest pain, shortness of breath, BLE edema. He remained in sinus rhythm with no EKG changes over night. He did have a fever of 100.6 last night. - Review of Systems General: denies: fever/chills, weight/appetite/sleep changes, night sweats, fatigue Respiratory: denies: cough, congestion, shortness of breath, exercise intolerance Cardiovascular: denies: chest pain, palpitation, edema, paroxysmal nocturnal dyspnea, orthopnea Musculoskeletal: reports: pain (back pain, recent laminectomy) Neurological: denies: numbness, syncope, seizure, weakness - Objective Allergies/Adverse Reactions: Allergies Allergy/AdvReac Type Severity Reaction Status Date / Time No Known Allergies Allergy Verified 10/02/20 22:31 Visit Medications: Current Medications Acetaminophen (Acetaminophen 325 Mg Tab) 650 mg PO Q4H PRN PRN Reason: Headache/Fever or Pain Last Admin: 10/05/20 04:18 Dose: 650 mg Documented by: Acetaminophen/Codeine Phosphate (Acetaminophen/Codeine 30-300mg Tablet) 1 tab PO Q3H PRN PRN Reason: Mild Pain (1-3) Last Admin: 10/03/20 16:18 Dose: 1 tab Documented by: Atorvastatin Calcium (Atorvastatin Calcium 40 Mg Tab) 40 mg PO HS [facility] Last Admin: 10/04/20 21:50 Dose: 40 mg Documented by: Bisacodyl (Bisacodyl 10 Mg Supp) 10 mg ID Q12H PRN PRN Reason: Constipation Diphenhydramine HCl (Diphenhydramine 25 Mg Cap) 25 mg PO Q6H PRN PRN Reason: Itching Hydrochlorothiazide (Hydrochlorothiazide 25 Mg Tab) [facility] Last Admin: 10/05/20 08:57 Dose: 12.5 mg Documented by: Sodium Chloride (Normal Saline 0.9%) 1,000 mls @ 75 mls/hr IV .[id number] [facility] Last Admin: 10/05/20 04:02 Dose: 1,000 mls Documented by: Isosorbide Mononitrate (Isosorbide Mononitrate Er 30 Mg Tab) [facility] Last Admin: 10/05/20 08:57 Dose: 30 mg Documented by: Magnesium Hydroxide (Milk Of Magnesia 30 Ml Udcup) 30 ml PO Q12H PRN PRN Reason: Constipation Metoprolol Tartrate (Metoprolol Tartrate 50 Mg Tab) 50 mg PO BID [facility] Last Admin: 10/05/20 08:57 Dose: 50 mg Documented by: Morphine Sulfate (Morphine 2 Mg/Ml Vial) 2 mg SLOW IVP Q1H PRN PRN Reason: Moderate Breakthrough Pain Last Admin: 10/03/20 08:41 Dose: 2 mg Documented by: Nitroglycerin (Nitroglycerin 0.4 Mg Tab (25 Tab Bottle)) 0.4 mg SL Q5MIN PRN PRN Reason: Chest Pain Polyethylene Glycol (Polyethylene Glycol 3350 17 Gm Packet) 17 gm PO DAILY [facility] Last Admin: 10/05/20 08:57 Dose: Not Given Documented by: Promethazine HCl (Promethazine Hcl 25 Mg/Ml Vial) 12.5 mg IM Q4H PRN PRN Reason: Nausea/Vomiting Promethazine HCl (Promethazine 25 Mg Tab) 12.5 mg PO Q4H PRN PRN Reason: Nausea/Vomiting Scopolamine (Scopolamine 1.5 Mg/72 Hour Patch) 1.5 mg TD Q3D PRN PRN Reason: Dizziness Sodium Chloride (Flush - Normal Saline 10 Ml Syringe) 10 ml IVF PRN PRN PRN Reason: Saline Flush Tamsulosin HCl (Tamsulosin Hcl 0.4 Mg Cap) 0.4 mg PO 0600 [facility] Last Admin: 10/05/20 07:37 Dose: 0.4 mg Documented by: Tizanidine HCl (Tizanidine Hcl 4 Mg Tab) 4 mg PO Q6H PRN PRN Reason: Muscle Spasm Tramadol HCl (Tramadol Hcl 50 Mg Tab) 50 mg PO Q6H PRN PRN Reason: Mild Pain (1-3) Last Admin: 10/02/20 21:41 Dose: 50 mg Documented by: Vital Signs & Weight: Vital Signs Temp Pulse Pulse Pulse Resp BP BP 10/05/20 13:52 74 75 101/61 126/72 10/05/20 11:43 98.2 F 65 20 10/05/20 08:00 98.4 F 78 18 10/05/20 04:18 100.6 F H 10/05/20 04:07 100.6 F H 76 16 BP Pulse Ox 10/05/20 13:52 10/05/20 11:43 130/82 97 10/05/20 08:00 158/90 H 95 10/05/20 04:18 10/05/20 04:07 144/67 H 94 L Weight 183 lb - Quality Measures Condition: Coronary Artery Disease CV meds: Beta Jen: Yes, Statin: Yes, ASA: Yes - Physical Exam General: alert & oriented x3 (right carotid bruit), appears well, no apparent distress HEENT: normocephaly Neck: supple neck, bruit Cardiac: regular rate and rhythm, no murmur, S1/S2 Lungs: clear to auscultation, normal breath sounds, no wheeze, rales, rhonchi Neuro: grossly intact, motor function intact, sensory function intact Abdomen: soft, non-tender Extremities: no clubbing, no edema, 2+ Posterior Tibial, 2+ Dorsalis Pedus Skin: clear (recent surgical incision to lower back, dressing intact with no oozing.) Musculoskeletal: normal range of motion - Labs Result Diagrams: 10/05/20 04:29 10/05/20 04:29 Troponin/CKMB Troponin I 0.059 ng/mL (< 0.028) H 10/04/20 11:41 - EKG Interpretation EKG Method: Telemetry EKG: sinus rhythm (few PVC's overnight per telemetry records) - Assessment/Plan Assessment/Plan: 1. Chest pain s/p with history of coronary artery disease s/p surgical laminectomy: he has had no other episodes of chest pain since his surgery. He has had no EKG changes throughout his stay. He remains in sinus rhythm. We will continue with current plan at this time, he is not a candidate for stress testing at this time, but this could be done as an outpatient when patient is more stable. 2. History of chronic renal insufficiency: [facility]. His creatinine level is starting to trend down. It is 0.95 today. We will continue to hold the LÁZARO inhibitor. His blood pressure seems to be relatively controlled with his current medications at this time. We will continue to monitor this closely. 3. S/P Laminectomy: treated by neurology and primary care service, I believe that his plan is to go to in-patient rehab per reports. He states that he sat up with therapy yesterday and did well. He is still having some pain, but states he is doing better each day. 4. Coronary artery Disease: he may need stress testing as an outpatient, we will continue his beta jen, statin, and Isosorbide as tolerated. He was stopped on his Aspirin this morning d/t large amount of output from his surgical drain, once this is resolved and he is cleared from a neurosurgery standpoint, he may resume his Aspirin. 5. Right carotid bruit: may follow-up as outpatient with the [facility] for a carotid doppler unless neurosurgery would like patient to have it done prior to discharge. 6. Fever: patient had fever of 100.6 over night, he was given Tylenol. Urine cultures and venous doppler was ordered, it was negative for DVT. Treated by primary care services. Pt. seen and eval. by me. I agree with the A/P by the DIE REPAIRER FORGING. Cardiac status is stable. I will sign off. He should f/u in 4-6 weeks . Consider stress test at that time. Consider carotid doppler. linda
[2020-10-05] MEDS: Atorvastatin Calcium 40 MG TAB PO SCH (21:53)
[2020-10-05] MEDS: diphenhydrAMINE 25 MG CAP PO PRN (22:18)
[2020-10-06] MEDS: Tamsulosin HCl 0.4 MG CAP PO SCH (06:01)
[2020-10-06] MEDS: Sodium Chloride 0.9% 1,000 ML IV SCH (06:48)
--- NOTE | 2020-10-06 07:16 | PRG ---
DATE OF SERVICE: 10/06/2020 I saw Ivan Gibbs in his hospital room this morning. He has moved to a telemetry bed after a bit of chest pain over the weekend. He has been hemodynamically stable, however. A transfusion was given and he feels much better. Overnight, I see maximum temperature recorded of 100.6 degrees Fahrenheit on Tuesday morning. His blood pressure has been 130s to 150s. I do not find any new deficits in the lower extremities. The hemoglobin is up to 8.9. The drain, unfortunately, is still in despite it is a low output. We removed the drain today. We will advance him with physical therapy. We will see if he is a candidate for inpatient rehab or home health. I think he is a good have enough energy to participate in at least 3 hours of therapy and we try to make him a candidate for the inpatient therapy. Job ID: [id number]
[2020-10-06] MEDS: Polyethylene Glycol 3350 17 GM Packet PO SCH (08:56)
[2020-10-06] MEDS: Acetaminophen 325 MG TAB PO PRN ×3 (08:57→21:30)
[2020-10-06] MEDS: Hydrochlorothiazide 25 MG TAB PO SCH (08:57)
[2020-10-06] MEDS: Metoprolol Tartrate 50 MG TAB PO SCH ×2 (08:57→21:30)
[2020-10-06 09:43] LABS: Anion Gap 13 mmol/L (10-20); BUN (Urea Nitrogen) 13 mg/dL (8.4-25.7); Calc. Creatinine Clearance 85 mL/min (70-130); Carbon Dioxide 26 mmol/L (23-31); Chloride 102 mmol/L (98-107); Glucose 102 mg/dL (83-110); Potassium 3.8 mmol/L (3.5-5.1); Sodium 137 mmol/L (136-145)
[2020-10-06 10:40] LABS: #Eosinphils 0.4 thou/uL (0.0-0.7); #Lymphocytes 1.5 thou/uL (1.20-3.40); #Monocytes 0.4 thou/uL (0.11-0.59); #Neutrophils 4.2 thou/uL (1.40-6.50); %Basophils 0.3 % (0.0-1.0); %Eosinophils 6.3 % (0.0-10.0); %Lymphocytes 22.5 % (21.0-51.0); %Monocytes 6.7 % (0.0-10.0); %Neutrophils 64.2 % (42.0-75.0); Hemoglobin 9.4 g/dL (14.0-18.0); Mean Corpuscular HGB CONC 32.9 g/dL (32.0-36.0); Mean Corpuscular Hemoglobin 31.6 pg (27.0-31.0); Mean Corpuscular Volume 96.1 fL (78.0-98.0); Mean Platelet Volume 6.3 fL (7.4-10.4); Platelet Count 158 thou/uL (130-400); Red Blood Cell (RBC) Count 2.96 mill/uL (4.70-6.10); White Blood Cell (WBC) Count 6.5 thou/uL (4.8-10.8)
[2020-10-06] MEDS: CEFAZOLIN 2 GM in Premix Bag 1 BAG IVPB SCH ×2 (13:36→21:31)
--- NOTE | 2020-10-06 17:56 | PDOC.HOSPP ---
- Subjective Encounter Date: 10/06/20 Subjective: The patient denies any new complaints. - Objective Vital Signs & Weight: Vital Signs (12 hours) Temp Pulse Pulse Resp BP BP Pulse Ox 10/06/20 15:35 98.7 F 64 18 146/90 H 99 10/06/20 11:41 98.8 F 63 12 115/75 97 10/06/20 08:42 68 168/58 H 10/06/20 07:20 96 10/06/20 07:04 97.9 F 71 12 157/98 H 96 Weight Weight 174 lb I&O: 10/05/20 10/06/20 10/07/20 06:59 06:59 06:59 Intake Total 2115 2800 600 Output Total 1745 4130 525 Balance 370 -1330 75 Result Diagrams: 10/06/20 08:48 10/06/20 08:48 Hospitalist ROS - Medication Medications: Active Medications Generic Name Dose Route Start Last Admin Trade Name Freq PRN Reason Stop Dose Admin Acetaminophen 650 mg 10/02/20 12:45 10/06/20 16:12 Acetaminophen 325 Mg Tab PO 650 mg Q4H PRN Administration Headache/Fever or Pain Acetaminophen/Codeine Phosphate 1 tab 10/02/20 12:45 10/03/20 16:18 Acetaminophen/Codeine 30-300mg Tablet PO 1 tab Q3H PRN Administration Mild Pain (1-3) Atorvastatin Calcium 40 mg 10/04/20 21:00 10/05/20 21:53 Atorvastatin Calcium 40 Mg Tab PO 40 mg HS KAL[place]NA Administration Diphenhydramine HCl 25 mg 10/02/20 12:45 10/05/20 22:18 Diphenhydramine 25 Mg Cap PO 25 mg Q6H PRN Administration Itching Hydrochlorothiazide 12.5 mg 10/03/20 09:00 10/06/20 08:57 Hydrochlorothiazide 25 Mg Tab PO 12.5 mg QAM KAL[place]NA Administration Sodium Chloride 1,000 mls @ 75 mls/hr 10/02/20 12:45 10/06/20 06:48 Normal Saline 0.9% IV 1,000 mls .[id number] KALPANA Administration Cefazolin Sodium/Dextrose 2 gm 50 mls @ 100 mls/hr 10/06/20 14:00 10/06/20 13:36 / Device IVPB 50 mls Q8HR KALPANA Administration Isosorbide Mononitrate 30 mg 10/03/20 09:00 10/06/20 08:57 Isosorbide Mononitrate Er 30 Mg Tab PO 30 mg QAM KAL[place]NA Administration Metoprolol Tartrate 50 mg 10/02/20 21:00 10/06/20 08:57 Metoprolol Tartrate 50 Mg Tab PO 50 mg BID KAL[place]NA Administration Morphine Sulfate 2 mg 10/02/20 12:45 10/03/20 08:41 Morphine 2 Mg/Ml Vial SLOW IVP 2 mg Q1H PRN Administration Moderate Breakthrough Pain Polyethylene Glycol 17 gm 10/03/20 09:00 10/06/20 08:56 Polyethylene Glycol 3350 17 Gm Packet PO Not Given DAILY KALPANA Sodium Chloride 10 ml 10/02/20 12:45 10/05/20 21:53 Flush - Normal Saline 10 Ml Syringe IVF 10 ml PRN PRN Administration Saline Flush Tamsulosin HCl 0.4 mg 10/05/20 06:00 10/06/20 06:01 Tamsulosin Hcl 0.4 Mg Cap PO 0.4 mg 0600 KALPANA Administration Tramadol HCl 50 mg 10/02/20 12:45 10/02/20 21:41 Tramadol Hcl 50 Mg Tab PO 50 mg Q6H PRN Administration Mild Pain (1-3) - Exam General Appearance: awake alert ENT: normocephalic atraumatic Neck: supple, no JVD Heart: RRR Respiratory: normal chest expansion, no tachypnea Extremities: no cyanosis, no clubbing Hosp A/P (1) Chest pain Code(s): R07.9 - CHEST PAIN, UNSPECIFIED Status: Acute (2) CAD (coronary artery disease) Code(s): I25.10 - ATHSCL HEART DISEASE OF [place] CORONARY ARTERY W/O ANG PCTRS Status: Chronic (3) Urine retention Code(s): R33.9 - RETENTION OF URINE, UNSPECIFIED Status: Acute - Plan No fever since yesterday. No evidence of leukocytosis. No source of infection was identified. The patient is on cefazolin postoperatively. Postoperative chest pain with history of coronary artery disease. Serial troponins slightly trended up. The patient was evaluated by cardiology and no acute intervention was recommended. Continue aspirin, atorvastatin, Imdur, Lopressor, and nitroglycerin. Oneil catheter was placed by urology for urinary retention. Continue tamsulosin. Continue PT and OT. Pending rehab placement.
[2020-10-06] MEDS: Atorvastatin Calcium 40 MG TAB PO SCH (21:30)
[2020-10-06] MEDS: diphenhydrAMINE 25 MG CAP PO PRN (21:30)
[2020-10-07] MEDS: Sodium Chloride 0.9% 1,000 ML IV SCH ×3 (00:58→23:05)
[2020-10-07] MEDS: CEFAZOLIN 2 GM in Premix Bag 1 BAG IVPB SCH ×3 (05:40→23:05)
[2020-10-07] MEDS: Tamsulosin HCl 0.4 MG CAP PO SCH (05:40)
--- NOTE | 2020-10-07 07:16 | PRG ---
DATE OF SERVICE: 10/07/2020 I saw Mr. Gibbs in his hospital room this morning. He has been walking in the hallways, even past the nursing station and back. He did that at least twice yesterday. He is getting in and out of bed on his own and he feels safe doing so. He would like to go home or go to rehab today. I think we can make that decision and choose one of those for him. I hope he is a candidate for inpatient rehabilitation because there is no one living at home permanently with him right now, although his children do visit. Job ID: [id number]
[2020-10-07] MEDS: Polyethylene Glycol 3350 17 GM Packet PO SCH (09:03)
[2020-10-07] MEDS: Hydrochlorothiazide 25 MG TAB PO SCH (09:03)
[2020-10-07] MEDS: Metoprolol Tartrate 50 MG TAB PO SCH ×2 (09:03→23:03)
[2020-10-07] MEDS: Acetaminophen 325 MG TAB PO PRN ×2 (09:04→14:01)
--- NOTE | 2020-10-07 16:45 | PDOC.BPN ---
- Brief Progress Note Encounter Date: 10/07/20 The patient is medically stable for discharge from hospitalist standpoint. We will sign off. Please call for any questions.
[2020-10-07] MEDS: diphenhydrAMINE 25 MG CAP PO PRN (23:03)
[2020-10-07] MEDS: Atorvastatin Calcium 40 MG TAB PO SCH (23:03)
[2020-10-07] MEDS: Acetaminophen/Codeine 30-300mg Tablet PO PRN (23:11)
[2020-10-08] MEDS: Tamsulosin HCl 0.4 MG CAP PO SCH (06:12)
[2020-10-08] MEDS: Acetaminophen/Codeine 30-300mg Tablet PO PRN ×2 (06:12→10:19)
[2020-10-08] MEDS: CEFAZOLIN 2 GM in Premix Bag 1 BAG IVPB SCH ×2 (06:13→15:09)
--- NOTE | 2020-10-08 08:22 | PRG ---
DATE OF SERVICE: 10/08/2020 I saw Ivan Gibbs in his hospital room this morning. The [place] has not yet approved his inpatient rehabilitation stay. He continues to walk in the hallways with the assistance of our physical therapists here. Maximum temperature recorded is 98.7 degrees Fahrenheit. Systolic blood pressures have ranged in the 120s to 180s. I do not find any new neurological deficit in the lower extremities. Mr. Gibbs would really like inpatient rehabilitation. He thinks it is best for him. However, he does not want to wait [facility] for the [facility] to [facility]. He is thinking about going home now, but I think we should continue to check on rehab. If there is no hope of getting to rehab today or tomorrow and he is thinking about going home, then home health can be arranged. Followup arrangements will be made in our clinic. Job ID: [id number] MTDD
[2020-10-08] MEDS: Hydrochlorothiazide 25 MG TAB PO SCH (10:03)
[2020-10-08] MEDS: Polyethylene Glycol 3350 17 GM Packet PO SCH (10:04)
[2020-10-08] MEDS: Metoprolol Tartrate 50 MG TAB PO SCH (10:04)
[2020-10-08 16:02] VITALS: BP 120/74; TEMP 98.2
--- NOTE | 2020-10-09 04:01 | PQF ---
Dear : Goukl Lopez Date 10/09/2020 Please exercise your independent, professional judgment in responding to the clarification form. Clinical indicators are provided on the bottom of this form for your review Can you please further clarify the diagnosis of the patient? Please check appropriate box(es): AMI TYPE: [ > ] Demand ischemia due to Type 2 [place] [ ] Demand ischemia without Type 2 [place] [ ] Other please specify [ ] Unable to determine Physician Signature: Date/Time: For continuity of documentation, please document condition throughout progress notes and discharge summary. Thank You. To be completed by CDI/Coding staff for physician review: Present Clinical Indicators - Signs / Symptoms / Labs Results and Location in Medical Record [ x ] Chest pain Consult pg.1 Dr. Ghosh 10/04 [ x ] First degree AV block Consult pg.1 Dr. Ghosh 10/04 [ x ] Chest discomfort last nigh Consult pg.1 Dr. Swain [ x ] Slight increase of troponin is due to demand ischemia associated with perhaps the stress surgery Consult pg.1 Dr. Swain [ x ] Troponin I: 0.013, 0.019, 0.131H, 0.059H Laboratory Present Risk Factors Results and Location in Medical Record [ x ] s/p laminectomy Consult pg.2 Dr. Ghosh 10/04 [ x ] CAD Consult pg.1 Dr. Swain [ x ] 75 years old H and P pg.1 Present Treatments Results and Location in Medical Record [ x ] Cardiology Consult Dr. Swain [ x ] IV Fluids MAR [ x ] Troponin Monitoring Laboratory [ x ] Morphine 2gm IV MAR [ x ] Nitroglycerin 0.4 SL MAR [ x ] Aspirin 81 mg PO MAR CDS/Small Engine Technician Signature: Isidoro Caceres Phone #: ext [phone] Date 10/09/2020 JEAN
--- NOTE | 2020-10-09 15:23 | DIS ---
DATE OF ADMISSION: 10/02/2020 DATE OF DISCHARGE: 10/08/2020 Sai is a 75-year-old gentleman, who underwent a laminectomy L1-S1. After surgery he was transitioned to the Med/Surg floor, where his pain has been well controlled with p.o. medications. He has been tolerating a regular diet, but had some voiding issues. Urology was consulted due to urinary retention and a catheter was placed. The patient also developed a fever of 100.4 with some chest pain. EKG, urine culture, and Doppler ultrasound of the lower extremities were negative. Cardiology as also consulted due to chest pain. No abnormalities were found. The LAUREEN drain output trended downward and was removed. He is otherwise doing well and ambulating easily in the hallways. He is awaiting inpatient rehab approval by the [place]. On exam today, he is awake, alert, in no acute distress. He has free active range of motion of all extremities. No focal motor weakness. No reflex asymmetry. The incision is clean, dry, and intact. We will plan to discharge the patient to inpatient rehab once approved. I have discussed home care precautions with him. CONDITION ON DISCHARGE: The patient had no emergencies. Condition was stable for discharge. MEDICATIONS: Home going medications were reviewed. FOLLOWUP: Arrangements made by our major donor coordinator in the clinic and call to the patient. ACTIVITIES: Restrictions were reviewed in person. Wound care showers are acceptable. The patient should pat the incision dry, but not submerge under the surface of a body of water for 1 month. Job ID: [id number] MTDD
--- NOTE | 2020-10-24 12:10 | EKG ---
Test Reason : STAT Blood Pressure : / mmHG Vent. Rate : 080 BPM Atrial Rate : 080 BPM P-R Int : 212 ms QRS Dur : 074 ms QT Int : 370 ms P-R-T Axes : 081 000 -82 degrees QTc Int : 426 ms Sinus rhythm with 1st degree A-V block T wave abnormality, consider inferior ischemia T wave abnormality, consider anterolateral ischemia Abnormal ECG When compared with ECG of 19-JUN-2020 00:24, (Unconfirmed) Criteria for Septal infarct are no longer Present Confirmed by DR. José CASTRO ([id number]) on 10/24/2020 12:10:24 PM Referred By: [email or web address] Confirmed By:DR. José CASTRO
== END 2020-10-08 19:38 | DRG 515 ==
LOC: SURG A 10-02 10:39 → 2SE 10-04 02:28
PROVIDERS: ADMIT Neurological Surgery; ATTEND Neurological Surgery
PROC: 01NB0ZZ Release Lumbar Nerve, Open Approach (ICD-10-PCS; principal; 2020-10-02)
PROC: 01NR0ZZ Release Sacral Nerve, Open Approach (ICD-10-PCS; 2020-10-02)
PROC: 0T9B70Z Drainage of Bladder with Drainage Device, Via Natural or Artificial Opening (ICD-10-PCS; 2020-10-02)
DX: M48.062 Spinal stenosis, lumbar region with neurogenic claudication (principal); I21.A1 Myocardial infarction type 2; M48.07 Spinal stenosis, lumbosacral region; Z20.828 Contact with and (suspected) exposure to other viral communicable diseases; M19.90 Unspecified osteoarthritis, unspecified site; E78.00 Pure hypercholesterolemia, unspecified; G89.29 Other chronic pain; F17.210 Nicotine dependence, cigarettes, uncomplicated; E78.5 Hyperlipidemia, unspecified; I25.10 Atherosclerotic heart disease of native coronary artery without angina pectoris; I12.9 Hypertensive chronic kidney disease with stage 1 through stage 4 chronic kidney disease, or unspecified chronic kidney disease; K59.00 Constipation, unspecified; I73.9 Peripheral vascular disease, unspecified; N18.9 Chronic kidney disease, unspecified; R09.89 Other specified symptoms and signs involving the circulatory and respiratory systems; N99.113 Postprocedural anterior bulbous urethral stricture, male; R33.9 Retention of urine, unspecified; R50.9 Fever, unspecified; I44.0 Atrioventricular block, first degree; Z85.46 Personal history of malignant neoplasm of prostate; Z79.899 Other long term (current) drug therapy; Z95.1 Presence of aortocoronary bypass graft; Z95.5 Presence of coronary angioplasty implant and graft; I25.2 Old myocardial infarction
CPT/HCPCS: 36415; 36430; 76000; 80048; 80053; 80061; 81001; 84145; 84443; 84484; 85025; 85027; 85610; 85730; 86850; 86900; 86901; 86922; 87040; 87635; 93005; 93010; 93306; 93970; J0171; J0690; J1100; J2250; J2270; J2370; J2405; J2704; J3010; J3370; J3480; J3490; P9016; P9045; Q0163; S0020; U0003

== ENCOUNTER 2021-09-29 11:35 | Observation (INO) | payer OTHER ==
[2021-09-29] MEDS ORDERED: Aspirin Chewable 81 MG TAB ONE (12:17)
[2021-09-29 12:45] LABS: ALT (SGPT) 10 U/L (8-55); AST (SGOT) 14 U/L (5-34); Alkaline Phosphatase 57 U/L (40-110); Anion Gap 13 mmol/L (10-20); BUN (Urea Nitrogen) 13 mg/dL (8.4-25.7); Bilirubin, Total 0.5 mg/dL (0.2-1.2); Calc. Creatinine Clearance 0 mL/min (70-130); Carbon Dioxide 26 mmol/L (23-31); Chloride 97 mmol/L (98-107); Globulin 3.4 g/dL (2.4-3.5); Glucose 95 mg/dL (83-110); Lipase 25 U/L (8-78); Potassium 4.1 mmol/L (3.5-5.1); Protein, Total 7.4 g/dL (5.8-8.1); Sodium 132 mmol/L (136-145)
[2021-09-29 12:57] LABS: Hemoglobin 11.2 g/dL (14.0-18.0); Mean Corpuscular Hemoglobin 36.3 pg (27.0-31.0); Mean Platelet Volume 5.8 fL (7.4-10.4); Platelet Count 183 thou/uL (130-400); RBC Distribution Width 12.9 % (11.5-14.5); Red Blood Cell (RBC) Count 3.09 mill/uL (4.70-6.10); White Blood Cell (WBC) Count 4.4 thou/uL (4.8-10.8)
[2021-09-29 13:06] LABS: #Eosinphils 0.3 thou/uL (0.0-0.7); #Lymphocytes 0.8 thou/uL (1.20-3.40); #Monocytes 0.4 thou/uL (0.11-0.59); #Neutrophils 2.9 thou/uL (1.40-6.50); %Basophils 0.2 % (0.0-1.0); %Eosinophils 6.6 % (0.0-10.0); %Lymphocytes 18.6 % (21.0-51.0); %Neutrophils 64.6 % (42.0-75.0); MDiff Complete? YES; Macrocytosis SLIGHT = 6-15 cells (100X) (0-5/hpf); Platelet Morphology Comment Appears Adequate; Polychromasia SLIGHT = 2-3 cells (100X) (0-2/hpf)
[2021-09-29] MEDS ORDERED: Nitroglycerin 0.4 MG TAB (25 Tab Bottle) SL PRN (15:47)
[2021-09-29] MEDS ORDERED: Acetaminophen 325 MG TAB PO PRN (15:47)
[2021-09-29 15:57] LABS: Troponin I Less than 0.010 ng/mL (< 0.028)
[2021-09-29 17:02] LABS: Magnesium 1.7 mg/dL (1.6-2.6)
[2021-09-29] MEDS ORDERED: Ondansetron ODT 4 MG TAB SL PRN (18:00)
[2021-09-29] MEDS ORDERED: Ondansetron PF 4 MG/2 ML Vial IVP PRN (18:00)
[2021-09-29 18:04] VITALS: BMI 27.3
[2021-09-29] MEDS ORDERED: Magnesium 2 GM/50 ML 2 GM in Premix Bag 1 BAG IVPB SCH (18:45)
[2021-09-29] MEDS ORDERED: hydrALAZINE 20 MG/ML VIAL SLOW IVP PRN (18:47)
[2021-09-29 19:05] LABS: Troponin I Less than 0.010 ng/mL (< 0.028)
[2021-09-30 05:40] LABS: #Eosinphils 0.2 thou/uL (0.0-0.7); #Lymphocytes 0.8 thou/uL (1.20-3.40); #Monocytes 0.5 thou/uL (0.11-0.59); #Neutrophils 2.6 thou/uL (1.40-6.50); %Basophils 0.5 % (0.0-1.0); %Lymphocytes 19.4 % (21.0-51.0); %Monocytes 12.7 % (0.0-10.0); %Neutrophils 62.4 % (42.0-75.0); Mean Corpuscular HGB CONC 34.2 g/dL (32.0-36.0); Mean Platelet Volume 5.7 fL (7.4-10.4); Platelet Count 179 thou/uL (130-400); RBC Distribution Width 12.9 % (11.5-14.5); Red Blood Cell (RBC) Count 3.05 mill/uL (4.70-6.10); White Blood Cell (WBC) Count 4.2 thou/uL (4.8-10.8)
[2021-09-30 05:45] LABS: Anion Gap 12 mmol/L (10-20); BUN (Urea Nitrogen) 12 mg/dL (8.4-25.7); Calc. Creatinine Clearance 90 mL/min (70-130); Calcium 9.7 mg/dL (7.8-10.44); Carbon Dioxide 25 mmol/L (23-31); Cardiac Risk 3.7 (Less than 4.5); Chloride 98 mmol/L (98-107); Cholesterol 160 mg/dl (< 200 Desired); Glucose 109 mg/dL (83-110); HDL Cholesterol 43 mg/dL (>60 Neg Risk); LDL Cholesterol, Calculated 85 mg/dL; Magnesium 1.8 mg/dL (1.6-2.6); Potassium 3.8 mmol/L (3.5-5.1); Sodium 131 mmol/L (136-145); Triglycerides 158 mg/dL (Less than 150)
[2021-09-30] MEDS ORDERED: Aspirin Chewable 81 MG TAB PO SCH (09:00)
[2021-09-30] MEDS ORDERED: Metoprolol Tartrate 50 MG TAB PO SCH (09:00)
[2021-09-30] MEDS ORDERED: Non-Formulary Item 1 EACH (Glucosam/Chondr-Msm1/D3/C/Mang [Glucosamine Chondroitin Comple PO SCH (09:10)
[2021-09-30 11:28] LABS: SARS-CoV-2 PCR by NAA Not Detected (NotDetected)
[2021-09-30 12:23] VITALS: BP 171/93; TEMP 98.2
[2021-09-30] MEDS ORDERED: Regadenoson 0.4 MG/5 ML SYRINGE ONE (13:15)
[2021-09-30] MEDS ORDERED: Rosuvastatin 10 MG TAB PO SCH (21:00)
[2021-09-30] MEDS ORDERED: Rosuvastatin 20 MG TAB PO SCH (21:00)
[2021-10-01] MEDS ORDERED: CHONDROITIN PO SCH (09:00)
[2021-10-01] MEDS ORDERED: GLUCOSAMINE PO SCH (09:00)
== END 2021-09-30 14:38 | disposition home or self-care (01) ==
LOC: ERS 11:35 → 2SW 14:35
PROVIDERS: ADMIT Internal Medicine; ATTEND Internal Medicine
DX: R07.9 Chest pain, unspecified (principal); I25.10 Atherosclerotic heart disease of native coronary artery without angina pectoris; I10 Essential (primary) hypertension; F17.210 Nicotine dependence, cigarettes, uncomplicated; E87.1 Hypo-osmolality and hyponatremia; D64.9 Anemia, unspecified; Z85.46 Personal history of malignant neoplasm of prostate; Z79.899 Other long term (current) drug therapy; Z88.5 Allergy status to narcotic agent; Z95.1 Presence of aortocoronary bypass graft; Z20.822 Contact with and (suspected) exposure to COVID-19
CPT/HCPCS: 36415; 71045; 78452; 80048; 80053; 80061; 83690; 83735; 84443; 84484; 85025; 93005; 93017; 96365; 96375; A9500; G0378; J0360; J2785; J3475; U0003; U0005